=== PATIENT | female | born 1990 | race African-American/Black ===

== ENCOUNTER 2016-09-23 00:05 | Emergency (ER) | payer MEDICAID, OTHER ==
[~2016-09-23] VITALS: Ht 172.7 cm; Wt 63.0 kg
[2016-09-23] MEDS ORDERED: SODIUM CHLORIDE 0.9% 1,000 ML IV SCH (01:31)
[2016-09-23] MEDS ORDERED: SODIUM CHLORIDE 0.9% 1,000 ML IV ONE (01:31)
[2016-09-23] MEDS ORDERED: DIPHENHYDRAMINE 50MG/ML VIAL IV ONE (01:45)
[2016-09-23] MEDS ORDERED: DEXAMETHASONE 10MG/ML 1ML VIAL IV ONE (01:45)
[2016-09-23] MEDS ORDERED: EPINEPHRINE 1:1000 1 MG/ML AMP SUBCUT ONE (01:45)
[2016-09-23] MEDS ORDERED: FAMOTIDINE 20MG/2ML VIAL IV ONE (01:45)
[2016-09-23 01:55] LABS: BASOPHILS % 0.6 % (0.0-2.0); EOSINOPHILS % 3.3 % (0.0-5.0); HEMATOCRIT. 32.8 % (36.0-48.0); HEMOGLOBIN. 10.7 g/dL (12.0-16.0); LYMPHOCYTES % 30.4 % (20.0-50.0); MEAN CORPUSCULAR HEMOGLOBIN 29.5 pg (28.0-32.0); MEAN CORPUSCULAR HGB CONC 32.6 g/dL (31.0-37.0); MEAN CORPUSCULAR VOLUME 90.6 fL (81.0-99.0); MEAN PLATELET VOLUME 9.7 fl (7.4-10.4); MONOCYTES % 8.7 % (2.0-8.0); PLATELET 212 x1000/uL (130-400); RED BLOOD CELL COUNT 3.62 mill/uL (4.2-5.4); RED CELL DISTRIBUTION WIDTH 13.5 % (11.6-14.6); WHITE BLOOD COUNT 8.4 x1000/uL (4.5-11.0)
[2016-09-23 02:01] LABS: CHLORIDE 105 mEq/L (98-107); INDEX HEMOLYSI 1 (1-3); INDEX ICTERIC 1 (1-4); INDEX LIPEMIC 1 (1-3)
[2016-09-23 02:06] LABS: ANION GAP 10; CALCIUM 8.4 mg/dL (8.5-10.1); CARBON DIOXIDE 28 mEq/L (21-32); UREA NITROGEN BLOOD 8 mg/dL (7-21); eGFR > 60 mL/min (>60)
[2016-09-23 06:18] VITALS: BP 123/70
== END 2016-09-23 06:20 | disposition home or self-care (01) ==
LOC: ER 00:05
DX: T78.3XXA Angioneurotic edema, initial encounter (principal); F17.210 Nicotine dependence, cigarettes, uncomplicated
CPT/HCPCS: 36415; 80048; 85025; 96361; 96372; 96374; 96375; 99291; J0171; J1100; J1200; J3490; J7030

== ENCOUNTER 2017-04-29 17:00 | Emergency (ER) | payer MEDICAID, OTHER ==
[~2017-04-29] VITALS: Ht 172.7 cm; Wt 62.0 kg
[2017-04-29] MEDS ORDERED: ACETAMINOPHEN 325MG TABLET PO ONE (23:30)
[2017-04-29 23:44] LABS: CLARITY URINE CLOUDY (CLEAR); COLOR URINE YELLOW (YELLOW); GLUCOSE URINE NEGATIVE (NEGATIVE); KETONES URINE NEGATIVE (NEGATIVE); LEUKOCYTE ESTERASE URINE 2+ (NEGATIVE); NITRITE URINE NEGATIVE (NEGATIVE); OCCULT BLOOD URINE NEGATIVE (NEGATIVE); PH URINE 6.5 (4.5-8.0); PROTEIN URINE NEGATIVE (NEGATIVE); SPECIFIC GRAVITY URINE 1.033 (1.005-1.030); UROBILINOGEN URINE 0.2 E.U./dL (0.2-1.0)
[2017-04-30 00:06] LABS: BASOPHILS % 0.5 % (0.0-2.0); EOSINOPHILS % 5.1 % (0.0-5.0); HEMATOCRIT. 31.1 % (36.0-48.0); HEMOGLOBIN. 10.5 g/dL (12.0-16.0); MEAN CORPUSCULAR HEMOGLOBIN 30.3 pg (28.0-32.0); MEAN CORPUSCULAR VOLUME 89.3 fL (81.0-99.0); MEAN PLATELET VOLUME 9.5 fl (7.4-10.4); MONOCYTES % 9.1 % (2.0-8.0); NEUTROPHILS % 61.3 % (40.0-76.0); PLATELET 185 x1000/uL (130-400); RED BLOOD CELL COUNT 3.48 mill/uL (4.2-5.4); RED CELL DISTRIBUTION WIDTH 13.2 % (11.6-14.6)
[2017-04-30 00:20] LABS: CHLORIDE 107 mEq/L (98-107)
[2017-04-30 00:36] LABS: CARBON DIOXIDE 25 mEq/L (21-32)
[2017-04-30 00:45] LABS: B-HCG QUANTITATIVE 18256 mIU/mL (<3)
[2017-04-30 01:30] VITALS: BP 108/65
== END 2017-04-30 01:40 | disposition home or self-care (01) ==
LOC: ER 18:17
DX: O26.892 Other specified pregnancy related conditions, second trimester (principal); R10.2 Pelvic and perineal pain; F17.200 Nicotine dependence, unspecified, uncomplicated; Z3A.17 17 weeks gestation of pregnancy
CPT/HCPCS: 36415; 76805; 80053; 81001; 83690; 84702; 85025; 86850; 86900; 99285

== ENCOUNTER 2017-10-06 10:56 | Inpatient (IN) | payer MEDICAID ==
[~2017-10-06] VITALS: Ht 172.7 cm; Wt 55.1 kg
[2017-10-06] MEDS ORDERED: ONDANSETRON HCL 4MG/2ML VIAL IV STA (11:15)
[2017-10-06] MEDS ORDERED: ACETAMINOPHEN 325MG TABLET PO STA (11:15)
[2017-10-06] MEDS ORDERED: MORPHINE SULFATE 4 MG/ML CPJ (NOT FOR IM USE) IV STA (11:15)
[2017-10-06] MEDS ORDERED: SODIUM CHLORIDE 0.9% 1000ML BAG (SEPSIS BOLUS) IV ONE (11:15)
[2017-10-06 11:42] LABS: INR 1.1; PROTHROMBIN TIME 11.4 sec (9.4-11.6)
[2017-10-06 11:44] LABS: HEMATOCRIT. 28.1 % (36.0-48.0); HEMOGLOBIN. 9.3 g/dL (12.0-16.0); MEAN CORPUSCULAR HEMOGLOBIN 29.2 pg (28.0-32.0); MEAN CORPUSCULAR VOLUME 88.2 fL (81.0-99.0); MEAN PLATELET VOLUME 8.8 fl (7.4-10.4); PLATELET 196 x1000/uL (130-400); RED BLOOD CELL COUNT 3.19 mill/uL (4.2-5.4)
[2017-10-06 11:46] LABS: CHLORIDE 102 mEq/L (98-107)
[2017-10-06 11:59] LABS: PLATELET ESTIMATE NORMAL
[2017-10-06 13:25] LABS: CLARITY URINE CLEAR (CLEAR); COLOR URINE YELLOW (YELLOW); KETONES URINE NEGATIVE (NEGATIVE); LEUKOCYTE ESTERASE URINE 2+ (NEGATIVE); NITRITE URINE NEGATIVE (NEGATIVE); OCCULT BLOOD URINE 2+ (NEGATIVE); PROTEIN URINE 1+ (NEGATIVE); SPECIFIC GRAVITY URINE 1.012 (1.005-1.030)
[2017-10-06] MEDS ORDERED: PIPERACILLIN/TAZ 3.375G PREMIX 50 ML IV ONE (14:30)
[2017-10-06] MEDS ORDERED: VANCOMYCIN 1 G PREMIX 200 ML IV ONE (14:30)
[2017-10-06] MEDS ORDERED: MORPHINE SULFATE 4 MG/ML CPJ (NOT FOR IM USE) IV ONE (14:30)
[2017-10-06] MEDS ORDERED: CLINDAMYCIN 600 MG in DEXTROSE 5% WATER 50 ML IV ONE (16:30)
[2017-10-06] MEDS ORDERED: GENTAMICIN 80MG PREMIX 100 ML IV ONE (16:30)
[2017-10-06] MEDS ORDERED: AMPICILLIN 1,000 MG in SODIUM CHLORIDE 0.9% 50 ML IV SCH (16:30)
[2017-10-06] MEDS ORDERED: GENTAMICIN SULFATE 80 MG in SODIUM CHLORIDE 0.9% 50 ML IV NR (17:15)
[2017-10-06] MEDS ORDERED: CLINDAMYCIN 600MG PREMIX 50 ML IV NR (17:15)
[2017-10-06] MEDS ORDERED: AMPICILLIN 30MG/ML SYR IV ONE (22:45)
[2017-10-06] MEDS ORDERED: ONDANSETRON HCL 4MG/2ML VIAL IV PRN (22:45)
[2017-10-06 23:00] VITALS: BP 116/61
[2017-10-07] VITALS (8 sets, daily range): BP systolic 86–116; BP diastolic 49–70
[2017-10-07] MEDS ORDERED: CLINDAMYCIN 900 MG in DEXTROSE 5% WATER 50 ML IV NR ×2
[2017-10-07] MEDS ORDERED: AMPICILLIN SOD/SULBACTAM NA 1.5 G in SODIUM CHLORIDE 0.9% 50 ML IV SCH ×2
[2017-10-07] MEDS: ACETAMINOPHEN WITH CODEINE 300/30MG TABLET PO PRN ×3 (00:10→19:02)
[2017-10-07] MEDS ORDERED: DEXT 5%/0.45% NACL KCL 20MEQ/L 1,000 ML IV SCH (01:00)
[2017-10-07] MEDS ORDERED: SODIUM CHLORIDE 0.9% IV NR (02:00)
[2017-10-07] MEDS ORDERED: GENTAMICIN SULFATE IV NR (02:00)
[2017-10-07] MEDS ORDERED: GENTAMICIN 120MG PREMIX 100 ML IV NR (02:00)
[2017-10-07] MEDS: AMPICILLIN 2000MG in SODIUM CHLORIDE 0.9% 100ML IV SCH ×4 (02:08→18:42)
[2017-10-07] MEDS: DEXT 5%/0.45% NACL KCL 20MEQ/L 1,000 ML IV SCH ×2 (03:46→17:17)
[2017-10-07] MEDS: CLINDAMYCIN 900 MG in DEXTROSE 5% WATER 50 ML IV SCH ×3 (05:34→17:16)
[2017-10-07 07:06] LABS: INR 1.2
[2017-10-07 07:19] LABS: HEMATOCRIT. 23.6 % (36.0-48.0); MEAN CORPUSCULAR HEMOGLOBIN 29.5 pg (28.0-32.0); MEAN CORPUSCULAR VOLUME 87.6 fL (81.0-99.0); MEAN PLATELET VOLUME 9.4 fl (7.4-10.4); PLATELET 195 x1000/uL (130-400); RED CELL DISTRIBUTION WIDTH 13.9 % (11.6-14.6)
[2017-10-07 07:23] LABS: CHLORIDE 109 mEq/L (98-107)
[2017-10-07] MEDS: ENOXAPARIN 40MG/0.4ML SYR SUBCUT SCH (09:00)
[2017-10-07] MEDS: ACETAMINOPHEN 325MG TABLET PO PRN ×2 (12:52→22:01)
[2017-10-07 12:57] LABS: PLATELET ESTIMATE NORMAL
[2017-10-08] VITALS (7 sets, daily range): BP systolic 90–107; BP diastolic 54–70
[2017-10-08] MEDS: CLINDAMYCIN 900 MG in DEXTROSE 5% WATER 50 ML IV SCH ×5 (00:37→23:37)
[2017-10-08] MEDS: DEXT 5%/0.45% NACL KCL 20MEQ/L 1,000 ML IV SCH ×3 (00:40→20:28)
[2017-10-08] MEDS: ACETAMINOPHEN WITH CODEINE 300/30MG TABLET PO PRN ×4 (01:32→23:55)
[2017-10-08] MEDS: AMPICILLIN 2000MG in SODIUM CHLORIDE 0.9% 100ML IV SCH ×4 (01:35→18:26)
[2017-10-08] MEDS ORDERED: GENTAMICIN SULFATE 140 MG in SODIUM CHLORIDE 0.9% 96.5 ML IV SCH (02:00)
[2017-10-08] MEDS: GENTAMICIN SULFATE 120 MG in SODIUM CHLORIDE 0.9% 100 ML IV SCH (04:34)
[2017-10-08 07:48] LABS: HEMATOCRIT. 24.3 % (36.0-48.0); HEMOGLOBIN. 8.2 g/dL (12.0-16.0); MEAN CORPUSCULAR HEMOGLOBIN 29.4 pg (28.0-32.0); MEAN PLATELET VOLUME 8.6 fl (7.4-10.4); PLATELET 244 x1000/uL (130-400); RED BLOOD CELL COUNT 2.79 mill/uL (4.2-5.4); RED CELL DISTRIBUTION WIDTH 13.9 % (11.6-14.6)
[2017-10-08 07:59] LABS: CHLORIDE 105 mEq/L (98-107)
[2017-10-08] MEDS: ENOXAPARIN 40MG/0.4ML SYR SUBCUT SCH (08:36)
[2017-10-08] MEDS: FERROUS SULFATE 325MG TABLET PO SCH ×3 (08:36→18:26)
[2017-10-08 14:16] LABS: PLATELET ESTIMATE NORMAL
[2017-10-08] MEDS ORDERED: BISACODYL 10MG SUPP PR NR (20:37)
[2017-10-09] MEDS: AMPICILLIN 2000MG in SODIUM CHLORIDE 0.9% 100ML IV SCH ×4 (00:32→19:12)
[2017-10-09 04:00] VITALS: BP 108/72
[2017-10-09] MEDS: GENTAMICIN SULFATE 120 MG in SODIUM CHLORIDE 0.9% 100 ML IV SCH (04:04)
[2017-10-09] MEDS: CLINDAMYCIN 900 MG in DEXTROSE 5% WATER 50 ML IV SCH ×4 (05:26→23:38)
[2017-10-09] MEDS: ACETAMINOPHEN WITH CODEINE 300/30MG TABLET PO PRN ×3 (05:33→19:12)
[2017-10-09] MEDS: DEXT 5%/0.45% NACL KCL 20MEQ/L 1,000 ML IV SCH ×2 (06:44→11:50)
[2017-10-09 08:00] VITALS: BP 98/65
[2017-10-09] MEDS: FERROUS SULFATE 325MG TABLET PO SCH ×3 (08:10→18:00)
[2017-10-09] MEDS: ENOXAPARIN 40MG/0.4ML SYR SUBCUT SCH (08:31)
[2017-10-09 12:00] VITALS: BP 100/58
[2017-10-09 16:00] VITALS: BP 102/48
[2017-10-09 20:00] VITALS: BP 102/64
[2017-10-09 23:14] LABS: HEMATOCRIT. 26.2 % (36.0-48.0); HEMOGLOBIN. 8.9 g/dL (12.0-16.0); MEAN CORPUSCULAR HEMOGLOBIN 29.4 pg (28.0-32.0); MEAN CORPUSCULAR VOLUME 86.7 fL (81.0-99.0); MEAN PLATELET VOLUME 8.1 fl (7.4-10.4); PLATELET 407 x1000/uL (130-400); RED BLOOD CELL COUNT 3.02 mill/uL (4.2-5.4); RED CELL DISTRIBUTION WIDTH 14.2 % (11.6-14.6)
[2017-10-09] MEDS: IBUPROFEN 800MG TABLET PO PRN (23:37)
[2017-10-10] VITALS (7 sets, daily range): BP systolic 97–109; BP diastolic 62–73
[2017-10-10] MEDS: AMPICILLIN 2000MG in SODIUM CHLORIDE 0.9% 100ML IV SCH ×3 (00:06→13:48)
[2017-10-10] MEDS: DEXT 5%/0.45% NACL KCL 20MEQ/L 1,000 ML IV SCH ×2 (02:00→12:32)
[2017-10-10] MEDS: GENTAMICIN SULFATE 120 MG in SODIUM CHLORIDE 0.9% 100 ML IV SCH (04:56)
[2017-10-10] MEDS: CLINDAMYCIN 900 MG in DEXTROSE 5% WATER 50 ML IV SCH ×2 (06:32→12:32)
[2017-10-10] MEDS: ACETAMINOPHEN WITH CODEINE 300/30MG TABLET PO PRN ×2 (06:36→13:00)
[2017-10-10] MEDS: FERROUS SULFATE 325MG TABLET PO SCH ×2 (08:10→13:10)
[2017-10-10] MEDS: ENOXAPARIN 40MG/0.4ML SYR SUBCUT SCH (08:39)
[2017-10-10 09:01] LABS: PLATELET ESTIMATE SLIGHTLY INCREASED
[2017-10-10] MEDS: IBUPROFEN 800MG TABLET PO PRN (16:36)
[2017-10-10 16:59] LABS: HEMATOCRIT. 27.2 % (36.0-48.0); HEMOGLOBIN. 9.2 g/dL (12.0-16.0); MEAN CORPUSCULAR HEMOGLOBIN 29.5 pg (28.0-32.0); MEAN CORPUSCULAR VOLUME 87.2 fL (81.0-99.0); MEAN PLATELET VOLUME 8.2 fl (7.4-10.4); PLATELET 487 x1000/uL (130-400); RED BLOOD CELL COUNT 3.13 mill/uL (4.2-5.4); RED CELL DISTRIBUTION WIDTH 14.1 % (11.6-14.6)
[2017-10-10 17:11] LABS: CHLORIDE 103 mEq/L (98-107)
[2017-10-10 19:02] LABS: PLATELET ESTIMATE INCREASED
== END 2017-10-10 17:22 | disposition home or self-care (01) | DRG 561 ==
LOC: ER 12:00 → 7WST 16:37 → ENRESERV 19:10
PROVIDERS: ADMIT Obstetrics & Gynecology; ATTEND Obstetrics & Gynecology
DX: O85 Puerperal sepsis (principal); D64.9 Anemia, unspecified; O99.03 Anemia complicating the puerperium
CPT/HCPCS: 36415; 71045; 76856; 80048; 80053; 80170; 81003; 81025; 83605; 85025; 85610; 87040; 87070; 87077; 87186; 93005; 96361; 96365; 96366; 96368; 96375; 99291; J0290; J0295; J1580; J1650; J2270; J2405; J2543; J3490; J7030; J7040; J7050; J7060

== ENCOUNTER 2018-04-22 19:23 | Emergency (ER) | payer MEDICAID, OTHER ==
[~2018-04-22] VITALS: Ht 175.3 cm; Wt 68.0 kg
[2018-04-22 20:20] LABS: CLARITY URINE TURBID (CLEAR); COLOR URINE YELLOW (YELLOW); KETONES URINE NEGATIVE (NEGATIVE); LEUKOCYTE ESTERASE URINE NEGATIVE (NEGATIVE); NITRITE URINE NEGATIVE (NEGATIVE); OCCULT BLOOD URINE TRACE (NEGATIVE); PH URINE 7.5 (4.5-8.0); PROTEIN URINE NEGATIVE (NEGATIVE); SPECIFIC GRAVITY URINE 1.022 (1.005-1.030); UROBILINOGEN URINE 0.2 E.U./dL (0.2-1.0)
[2018-04-22] MEDS ORDERED: SODIUM CHLORIDE 0.9% 1,000 ML IV ONE (22:19)
[2018-04-22 23:08] LABS: BASOPHILS % 0.5 % (0.0-2.0); HEMOGLOBIN. 10.4 g/dL (12.0-16.0); LYMPHOCYTES % 35.5 % (20.0-50.0); MEAN CORPUSCULAR HEMOGLOBIN 30.5 pg (28.0-32.0); MEAN CORPUSCULAR VOLUME 91.2 fL (81.0-99.0); MEAN PLATELET VOLUME 9.5 fl (7.4-10.4); MONOCYTES % 9.6 % (2.0-8.0); NEUTROPHILS % 49.4 % (40.0-76.0); PLATELET 206 x1000/uL (130-400)
[2018-04-22 23:13] LABS: CHLORIDE 105 mEq/L (98-107)
[2018-04-22 23:36] LABS: B-HCG QUANTITATIVE 48506 mIU/mL (<3)
[2018-04-23 01:16] VITALS: BP 105/69
== END 2018-04-23 01:36 | disposition home or self-care (01) ==
LOC: ER 19:23
DX: O99.331 Smoking (tobacco) complicating pregnancy, first trimester (principal); O26.891 Other specified pregnancy related conditions, first trimester; F12.10 Cannabis abuse, uncomplicated; R10.2 Pelvic and perineal pain; Z3A.08 8 weeks gestation of pregnancy
CPT/HCPCS: 36415; 76801; 80048; 81003; 81025; 84702; 85025; 86850; 86900; 86901; 87086; 99285; J7030; Z7610

== ENCOUNTER 2023-09-18 08:47 | Emergency (ER) | payer MEDICAID, OTHER ==
[~2023-09-18] VITALS: Ht 175.3 cm; Wt 70.0 kg
[2023-09-18 08:55] VITALS: BP 121/80; PULSE 98; RESP 18; TEMP 98.3; O2SAT 100
[2023-09-18 09:49] LABS: HEMATOCRIT. 36.5 % (36.0-48.0); MEAN CORPUSCULAR HEMOGLOBIN 29.4 pg (28.0-32.0); MEAN CORPUSCULAR HGB CONC 32.8 g/dL (31.0-37.0); MEAN CORPUSCULAR VOLUME 89.6 fL (81.0-99.0); PLATELET 183 x1000/uL (130-400); RED BLOOD CELL COUNT 4.08 mill/uL (4.2-5.4); RED CELL DISTRIBUTION WIDTH 13.9 % (11.6-14.6); WHITE BLOOD COUNT 11.7 x1000/uL (4.5-11.0)
[2023-09-18 09:52] LABS: DIFFERENTIAL COMMENT 1
[2023-09-18 10:02] LABS: CLARITY URINE CLOUDY (CLEAR); COLOR URINE YELLOW (YELLOW); GLUCOSE URINE NEGATIVE (NEGATIVE); KETONES URINE NEGATIVE (NEGATIVE); LEUKOCYTE ESTERASE URINE NEGATIVE (NEGATIVE); NITRITE URINE NEGATIVE (NEGATIVE); OCCULT BLOOD URINE TRACE (NEGATIVE); PH URINE 7.5 (4.5-8.0); PROTEIN URINE NEGATIVE (NEGATIVE); SPECIFIC GRAVITY URINE 1.023 (1.005-1.030)
[2023-09-18 10:21] LABS: BACTERIA URINE 2+; SQUAMOUS EPITHELIAL CELL URINE 3+ /lpf (RARE/1+); YEAST URINE NONE SEEN
[2023-09-18 10:27] LABS: ALANINE AMINOTRANSFERASE 19 IU/L (10-49); ALBUMIN 4.3 g/dL (3.2-4.8); ASPARTATE AMINOTRANSFERASE 23 IU/L (<34); BILIRUBIN TOTAL 1.5 mg/dL (0.1-1.0); CALCIUM 8.7 mg/dL (8.7-10.4); CARBON DIOXIDE 26 mEq/L (21-32); CHLORIDE 107 mEq/L (98-107); CREATININE 0.8 mg/dL (0.6-1.0); GLUCOSE 87 mg/dL (70-105); POTASSIUM 3.9 mEq/L (3.5-5.1); PROTEIN TOTAL 7.5 g/dL (6.0-8.3); SODIUM 137 mEq/L (136-145); UREA NITROGEN BLOOD 11 mg/dL (9-23)
[2023-09-18 10:59] LABS: PLATELET ESTIMATE NORMAL
[2023-09-18 11:45] LABS: HCG SCREEN NEGATIVE
[2023-09-18] MEDS ORDERED: SULF1TAB48 MT (15:12)
== END 2023-09-18 17:20 | disposition home or self-care (01) ==
LOC: ER 08:47
DX: N39.0 Urinary tract infection, site not specified (principal); B34.9 Viral infection, unspecified; I10 Essential (primary) hypertension; F12.10 Cannabis abuse, uncomplicated
CPT/HCPCS: 36415; 80053; 81003; 81025; 84703; 85025; 99283

== ENCOUNTER 2024-02-09 13:37 | Emergency (ER) | payer OTHER ==
[~2024-02-09] VITALS: Ht 175.3 cm; Wt 67.6 kg
[~2024-02-09 13:37] MED LIST: SULF1TAB48 MT
[2024-02-09 13:38] VITALS: O2SAT 100
[2024-02-09] MEDS ORDERED: DEXAMETHASONE 10 MG/ML VIAL IM ONE (13:45)
[2024-02-09] MEDS ORDERED: DIPHENHYDRAMINE 50MG/ML VIAL IM ONE (13:45)
[2024-02-09] MEDS: DIPHENHYDRAMINE 50MG/ML VIAL IM NR (15:07)
[2024-02-09] MEDS: DEXAMETHASONE 10 MG/ML VIAL IM NR (15:07)
[2024-02-09] MEDS ORDERED: P20 MT (15:57)
[2024-02-09 16:21] VITALS: BP 126/75; PULSE 88; RESP 16; TEMP 98.2
== END 2024-02-09 16:21 | disposition home or self-care (01) ==
LOC: ER 14:04
DX: T78.40XA Allergy, unspecified, initial encounter (principal); R20.2 Paresthesia of skin; I10 Essential (primary) hypertension; F12.90 Cannabis use, unspecified, uncomplicated; X58.XXXA Exposure to other specified factors, initial encounter; Y93.89 Activity, other specified; Y92.89 Other specified places as the place of occurrence of the external cause; Y99.8 Other external cause status
CPT/HCPCS: 99284; 96372; J1100; J1200

== ENCOUNTER 2025-05-14 09:08 | Emergency (ER) | payer OTHER ==
[~2025-05-14] VITALS: Ht 177.8 cm; Wt 71.0 kg
[~2025-05-14 09:08] MED LIST changes: +P20 MT
[2025-05-14 09:17] VITALS: O2SAT 100
[2025-05-14] MEDS: KETOROLAC 30MG/ML VIAL IM ONE (11:00)
[2025-05-14] MEDS: LIDOCAINE 5% PATCH TOP STA (11:00)
[2025-05-14] MEDS ORDERED: IBUP-1455 MT (11:12)
[2025-05-14] MEDS ORDERED: LIDO700A30 TP (11:12)
[2025-05-14] MEDS ORDERED: CYCL10TA21 MT (11:12)
[2025-05-14 11:28] VITALS: BP 148/100; PULSE 89; RESP 16; TEMP 36.9; O2SAT 100
== END 2025-05-14 11:29 | disposition home or self-care (01) ==
LOC: ER 09:19
DX: S76.012A Strain of muscle, fascia and tendon of left hip, initial encounter (principal); I10 Essential (primary) hypertension; F12.90 Cannabis use, unspecified, uncomplicated; Z79.899 Other long term (current) drug therapy; W01.0XXA Fall on same level from slipping, tripping and stumbling without subsequent striking against object, initial encounter; Y93.01 Activity, walking, marching and hiking; Y92.89 Other specified places as the place of occurrence of the external cause; Y99.8 Other external cause status
CPT/HCPCS: 99283; 96372; J1885